=== PATIENT | male | born 1985 | race Caucasian/White ===

== ENCOUNTER 2021-06-30 18:04 | Emergency (ER) | payer BC ==
[2021-06-30 20:13] LABS: RED BLOOD COUNT 5.11 M/UL (4.20-5.50); WHITE BLOOD COUNT 8.4 K/UL (4.5-11.0)
[2021-06-30 20:31] LABS: BUN/CREATININE RATIO 11 (0-10)
== END 2021-06-30 23:16 | disposition home or self-care (01) ==
LOC: ER1 18:04
PROVIDERS: Physician Assistant
DX: L02.216 Cutaneous abscess of umbilicus (principal); R19.8 Other specified symptoms and signs involving the digestive system and abdomen
CPT/HCPCS: 80048; 85025; 87070; 87205; 99284

== ENCOUNTER 2021-07-07 12:21 | Emergency (ER) | payer BC | END 2021-07-07 13:49 | disposition left against medical advice (07) | LOC: ER1 12:21 | DX: U07.1 COVID-19 (principal) | CPT/HCPCS: 99283; U0002 ==